=== PATIENT | male | born 1995 | race Caucasian/White ===

== ENCOUNTER 2019-10-10 22:11 | Emergency (ER) | payer SELFPAY ==
[2019-10-10 22:14] VITALS: BP 148/92; PULSE 117; RESP 16; TEMP 36.5; O2SAT 98; BMI 19.5
[2019-10-10] MEDS: HYDROcodone-acetaminophen 5-325 mg Tablet 1 TAB PO (23:25)
[2019-10-10 23:46] VITALS: BP 135/71; PULSE 71; RESP 16; TEMP 36.7; O2SAT 99
--- NOTE | 2019-11-01 07:41 | ED_ITS ---
HPI - Dental/Oral General: Chief complaint: Dental/Oral Stated complaint: dental pain Time Seen by Provider: 10/10/19 22:55 History of Present Illness: HPI Narrative: Tooth pain MD Complaint: tooth pain Teeth map: 1. Chipped tooth and has caries Associated symptoms: Denies fever(s) Review of Systems Const: Denies: fever, chills or body aches Eyes: Denies: change in vision or blurry vision ENMT: Reports: other (Tooth pain); Denies: throat pain or nasal congestion Card: Denies: chest pain or shortness of breath on exertion Resp: Denies: shortness of breath, productive cough or non-productive cough GI: Denies: abdominal pain, nausea or vomiting : Denies: difficulty urinating Musc: Denies: extremity pain Skin/Breast: Denies: rash Neuro: Denies: headache Psych: Denies: anxiety or depression Horacio/Lymph: Denies: easy bruising PFSH ED PFSH: Statuses (acute, chronic, etc) shown below reflect problem list status as previously entered and may not be historically accurate Social History Smoking and tobacco status: never smoked Physical Exam Const: COMMON NORMALS: no apparent distress, average body habitus and oriented x3 HENMT: COMMON NORMALS: normocephalic HEAD & SCALP: normal to inspection and normocephalic FACE & SINUS: normal facial exam TEETH & GINGIVA IMAGES: 1. Tooth is broke and black Eye: COMMON NORMALS: conjunctivae normal GENERAL EYE: normal appearance of both eyes CONJUNCTIVA: Yes conjunctivae normal Neck/C-Spine: COMMON NORMALS: no JVD Chest: COMMONS NORMALS: inspection of chest normal Resp: COMMON NORMALS: normal respiratory effort and clear to auscultation bilaterally AUSCULTATION: clear to auscultation bilaterally Cardio: COMMON NORMALS: no JVD, regular rate and regular rhythm RATE: regular rate RHYTHM: regular rhythm GI: COMMON NORMALS: normal to inspection, nondistended, normoactive bowel sounds Extremity: COMMON NORMALS: normal to inspection and full ROM Neuro: COMMON NORMALS: oriented x3 Course Vital Signs: Vital signs: Vital Signs Temperature 98.1 F 10/10/19 23:46 Pulse Rate 71 10/10/19 23:46 Respiratory Rate 16 10/10/19 23:46 Blood Pressure 135/71 10/10/19 23:46 Pulse Oximetry 99 01/19/20 23:46 Discharge Plan Discharge Patient Disposition: Home, Self-Care Clinical Impression: Toothache Condition: Stable Prescriptions: New tramadol 50 mg tablet 50 mg PO Q8H PRN (Reason: pain) Qty: 14 RF: 0 Discharge Orders: Discharge Order (Routine); Ordered 10/10/19 Ordered By: Aleksander Orozco Referrals: Bebeto Richardson [employer] [Family Provider] - Discharge Diet: Usual diet Discharge Activity: Resume usual activity Patient Instructions: Toothache (ED) Activity Restrictions/Additional Instructions: Follow-up with medical provider as directed. Take medications as prescribed. Return to the ER or your medical provider if condition worsens. Please read and understand discharge instructions. If any questions ask please. Follow-up with dentist soon as possible this week. Get some dental paste and apply inside of tooth. Discharge Date/Time: 10/10/19 23:38 Coding Level of Care Code ED [employer] Supervisor for Rickie Bailey
== END 2019-10-10 23:38 | disposition home or self-care (01) ==
PROVIDERS: Emergency Provider Nurse Practitioner Family; Family Provider Nurse Practitioner
DX: K08.89 Other specified disorders of teeth and supporting structures (principal)
CPT/HCPCS: 99281; J3490